=== PATIENT | male | born 1965 | race Caucasian/White ===

== ENCOUNTER 2017-09-27 21:57 | Emergency (ER) | payer OTHER | END 2017-09-27 22:45 | disposition home or self-care (01) | LOC: ED 22:32 | DX: Z53.21 Procedure and treatment not carried out due to patient leaving prior to being seen by health care provider (principal) ==

== ENCOUNTER → 2017-09-27 | Outpatient (CLI) | payer OTHER | LOC: LAB 22:05 | PROVIDERS: ATTEND Emergency Medicine | DX: Z02.9 Encounter for administrative examinations, unspecified (principal) ==